=== PATIENT | male | born 1995 | race Hispanic/Latino ===

== ENCOUNTER 2020-09-12 19:06 | Emergency (ER) | payer BC ==
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
[2020-09-12 20:31] LABS: Basophils # (Auto) 0.1 K/mm3 (0.0-0.1); Basophils % (Auto) 0.7 % (0.0-1.8); Eosinophils # (Auto) 0.1 K/mm3 (0.0-0.4); Eosinophils % (Auto) 1.1 % (0.0-4.3); Hematocrit 43.8 % (35.5-45.6); Hemoglobin 15.5 gm/dl (11.8-15.2); Lymphocytes # (Auto) 2.5 K/mm3 (1.2-5.4); Lymphocytes % (Auto) 22.6 % (13.4-35.0); Mean Corpuscular HGB Conc 36 % (32-34); Mean Corpuscular Volume 88 fl (84-94); Monocytes # (Auto) 0.7 K/mm3 (0.0-0.8); Monocytes % (Auto) 6.2 % (0.0-7.3); Platelet Count 275 K/mm3 (140-440); Red Blood Count 4.99 M/mm3 (3.65-5.03); Red Cell Distribution Width 13.4 % (13.2-15.2)
[2020-09-12] MEDS ORDERED: LORazepam 1 MG TAB PO ONE (20:55)
[2020-09-12 21:10] LABS: BUN/Creatinine Ratio 9; Blood Urea Nitrogen 9 mg/dL (9-20); Calcium 9.4 mg/dL (8.4-10.2); Hemolysis Index 20
[2020-09-12] MEDS ORDERED: ZIPRASIDONE MESYLATE 20 MG VIAL IM ONE ×2 (22:03→22:33)
[2020-09-13 02:18] LABS: Bilirubin,Urine NEG (Negative); Blood,Urine NEG (Negative); Color,Urine Yellow (Yellow); Hyaline Casts,Urine 1 /LPF; Mucus,Urine FEW /HPF; Urobilinogen,Urine < 2.0 mg/dL (<2.0)
[2020-09-13 02:25] LABS: Amphetamine Screen,Urine PRESUMPTIVE NEGATIVE; Benzodiazepines Screen,Urine PRESUMPTIVE NEGATIVE; Cannabinoid Screen,Urine PRESUMPTIVE NEGATIVE; Cocaine Screen,Urine PRESUMPTIVE NEGATIVE; Methadone Screen,Urine PRESUMPTIVE NEGATIVE; Opiate Screen,Urine PRESUMPTIVE NEGATIVE
[2020-09-13 08:09] VITALS: BP 117/81
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
[2020-09-13] MEDS ORDERED: ZIPRASIDONE MESYLATE 20 MG VIAL IM PRN (10:41)
[2020-09-13] MEDS ORDERED: chlordiazePOXIDE 25 MG CAP PO PRN ×2 (10:42)
[2020-09-13] MEDS ORDERED: hydrOXYzine PAMOATE 25 MG CAP PO SCH (11:00)
[2020-09-13] MEDS ORDERED: risperiDONE 0.25 MG TAB PO SCH (11:00)
[2020-09-13] MEDS ORDERED: DIVALPROEX DR 125 MG TAB PO SCH (11:00)
[2020-09-13] MEDS ORDERED: traZODone 50 MG TAB PO SCH (22:00)
== END 2020-09-13 12:55 ==
LOC: EEVIPCON 19:06 → ED 19:06
DX: R45.851 Suicidal ideations (principal); I10 Essential (primary) hypertension; G40.909 Epilepsy, unspecified, not intractable, without status epilepticus; F17.200 Nicotine dependence, unspecified, uncomplicated; Z88.8 Allergy status to other drugs, medicaments and biological substances
CPT/HCPCS: 36415; 80048; 80307; 81001; 85025; 96372; 99285; J3486; Q0177; 80320; G0480